=== PATIENT | male | born 1985 | race Caucasian/White ===

== ENCOUNTER 2016-08-06 14:38 | Emergency (ER) | payer BC ==
[~2016-08-06] VITALS: Ht 175.3 cm; Wt 72.7 kg
[2016-08-06 14:41] VITALS: BP 125/103
[2016-08-06 15:13] VITALS: TEMP 97.2
[2016-08-06] MEDS ORDERED: STRIBILD1 TAB PO (15:31)
[2016-08-06 15:42] LABS: INFLUENZA B NEGATIVE
[2016-08-06 16:01] VITALS: PULSE 90
[2016-08-10] MEDS ORDERED: CEPHALEXIN500 M1 PO (04:11)
== END 2016-08-06 16:00 | disposition home or self-care (01) ==
LOC: COL.ER 14:38
PROVIDERS: Nurse Practitioner
DX: J06.9 Acute upper respiratory infection, unspecified (principal); Z21 Asymptomatic human immunodeficiency virus [HIV] infection status